=== PATIENT | female | born 1975 | race Caucasian/White ===

== ENCOUNTER 2017-12-12 14:43 | Emergency (ER) | payer MEDICAID, OTHER ==
[~2017-12-12] VITALS: Ht 160 cm; Wt 98.0 kg
[2017-12-12] MEDS ORDERED: ketorolac trometh inj. 60 MG/2 ML VIAL IM ONE (15:55)
[2017-12-12 16:07] LABS: URINE HCG NEGATIVE (NEG)
[2017-12-12 16:08] LABS: CLARITY,URINE CLEAR (Clear); COLOR,URINE YELLOW (Yellow); GLUCOSE, URINE NEGATIVE (Neg); KETONES,URINE NEGATIVE (Neg); LEUKOCYTE ESTERASE ,URINE TRACE (Neg); NITRITES, URINE NEGATIVE (Neg); OCCULT BLOOD,URINE NEGATIVE (Neg); PH,URINE 5.5 (4.8-8.0); PROTEIN,URINE NEGATIVE (Neg); UROBILINOGEN,URINE 0.2 E.U/dL (0.2-1.0)
[2017-12-12 16:09] LABS: UA COLLECTION TYPE CLN CATCH MIDSTREAM
[2017-12-12 16:12] LABS: BASOPHILS # (AUTO) 0.1 X10'3 (0-0.2); BASOPHILS % (AUTO) 0.6 % (0-1); EOSINOPHILS # (AUTO) 0.2 X10'3 (0-0.9); EOSINOPHILS % (AUTO) 1.9 % (0-6); HEMATOCRIT 45.5 % (35.0-45.0); HEMOGLOBIN 15.6 g/dl (12.0-16.0); LYMPHOCYTES # (AUTO) 3.4 X10'3 (1.1-4.8); LYMPHOCYTES % (AUTO) 31.2 % (21-51); MEAN CORPUSCULAR HEMOGLOBIN 30.6 PG (27.0-31.0); MEAN CORPUSCULAR HGB CONC 34.4 % (33.0-36.5); MEAN CORPUSCULAR VOLUME 89.1 FL (78-98); MEAN PLATELET VOLUME 8.5 FL (7.4-10.4); MONOCYTES # (AUTO) 0.4 X10'3 (0-0.9); MONOCYTES % (AUTO) 3.6 % (2-12); NEUTROPHILS # (AUTO) 6.9 X10'3 (1.8-7.7); NEUTROPHILS % (AUTO) 62.7 % (42-75); PLATELET COUNT 378 X10'3 (140-440); RED BLOOD COUNT 5.11 X10'6 (4.20-5.60); RED CELL DISTRIBUTION WIDTH 12.4 % (11.5-14.5)
[2017-12-12 16:16] LABS: WBC,URINE 0-4 /HPF (0-4)
[2017-12-12 16:17] LABS: BACTERIA,URINE 3+ /HPF (Neg); RBC,URINE NONE SEEN /HPF (0-2); SQUAMOUS EPITHELIAL CELL,UR FEW /LPF (FEW)
[2017-12-12 16:23] LABS: ALANINE AMINOTRANSFERASE 26 U/L (12-78); ALBUMIN 3.6 G/DL (3.4-5.0); ALKALINE PHOSPHATASE 127 IU/L (46-116); ANION GAP 8 (8-16); ASPARTATE AMINO TRANSFERASE 14 U/L (10-37); BILIRUBIN,TOTAL 0.2 MG/DL (0.1-1.0); BLOOD UREA NITROGEN 18 MG/DL (7-18); CALCIUM 8.8 MG/DL (8.5-10.1); CHLORIDE 105 MMOL/L (99-107); GLUCOSE 110 MG/DL (70-104); LIPASE 122 U/L (73-393); POTASSIUM 4.2 MMOL/L (3.5-5.1); SODIUM 140 MMOL/L (135-145); TOTAL CARBON DIOXIDE 26.7 MMOL/L (24-32); TOTAL PROTEIN 7.2 G/DL (6.4-8.2); eGFR 61 ML/MIN
[2017-12-12 17:00] VITALS: BP 146/89
== END 2017-12-12 17:02 | disposition home or self-care (01) ==
LOC: ER 14:44
DX: G89.29 Other chronic pain (principal); M79.671 Pain in right foot; R10.811 Right upper quadrant abdominal tenderness; R10.13 Epigastric pain; Z90.710 Acquired absence of both cervix and uterus; Z88.2 Allergy status to sulfonamides
CPT/HCPCS: 36415; 76700; 80053; 81001; 81025; 83690; 85025; 87077; 87088; 87186; 96372; 99285; J1885

== ENCOUNTER 2018-06-19 03:32 | Emergency (ER) | payer MEDICAID, OTHER ==
[~2018-06-19] VITALS: Ht 160 cm; Wt 100.0 kg
[2018-06-19 03:39] VITALS: BP 177/91
[2018-06-19] MEDS ORDERED: HYDR-565 PO (04:09)
[2018-06-19] MEDS ORDERED: AMOX500C2 PO (04:09)
[2018-06-19] MEDS ORDERED: ibuprofen tablet 400 MG TABLET PO ONE (04:10)
[2018-06-19] MEDS ORDERED: amoxicillin 250mg capsule PO ONE (04:10)
[2018-06-19] MEDS ORDERED: HYDROcodone/acetaminophen 10/325mg tab PO ONE (04:10)
[2018-06-19] MEDS ORDERED: IBUP-1986 PO (04:11)
== END 2018-06-19 04:29 | disposition home or self-care (01) ==
LOC: ER 03:32
DX: K04.7 Periapical abscess without sinus (principal); Z90.710 Acquired absence of both cervix and uterus; Z90.89 Acquired absence of other organs; Z88.2 Allergy status to sulfonamides; Z79.899 Other long term (current) drug therapy
CPT/HCPCS: 99284

== ENCOUNTER 2018-06-22 17:49 | Emergency (ER) | payer OTHER ==
[~2018-06-22] VITALS: Ht 160 cm; Wt 97.0 kg
[~2018-06-22 17:49] MED LIST: AMOX500C2 PO; HYDR-565 PO; IBUP-1986 PO
[2018-06-22] MEDS ORDERED: proparacaine 0.5% ophthalmic drops 15ml EACHEYE ONE (18:55)
[2018-06-22] MEDS ORDERED: proCHLORperazine 10 MG/2 ml inj IV ONE (18:55)
[2018-06-22] MEDS ORDERED: normal saline 1000ML IV soln IVB ONE (18:55)
[2018-06-22] MEDS ORDERED: diphenhydrAMINE 50 mg/ml inj IV ONE (18:55)
[2018-06-22] MEDS ORDERED: ketorolac tromethamine 15mg/ml inj. IV ONE (20:50)
[2018-06-22] MEDS ORDERED: orphenadrine citrate 60mg/2ml inj. IM ONE (20:50)
[2018-06-22] MEDS ORDERED: ondansetron/PF 4mg/2ml inj IV ONE (20:50)
[2018-06-22] MEDS ORDERED: meclizine 12.5mg tablet PO ONE (20:50)
[2018-06-22 21:00] VITALS: BP 140/71
== END 2018-06-22 21:42 | disposition home or self-care (01) ==
LOC: ER 17:50
DX: H53.8 Other visual disturbances (principal); R51 Headache; H57.02 Anisocoria; F17.210 Nicotine dependence, cigarettes, uncomplicated; M77.9 Enthesopathy, unspecified; Z90.710 Acquired absence of both cervix and uterus; Z90.89 Acquired absence of other organs; Z88.2 Allergy status to sulfonamides; Z79.2 Long term (current) use of antibiotics; Z79.1 Long term (current) use of non-steroidal anti-inflammatories (NSAID)
CPT/HCPCS: 96372; 96374; 96375; 99284; J0780; J1200; J1885; J2360; J2405; J7030; J8597

== ENCOUNTER 2022-06-15 05:31 | Emergency (ER) | payer SELFPAY ==
[~2022-06-15] VITALS: Ht 160 cm; Wt 72.7 kg
[~2022-06-15 05:31] MED LIST changes: -AMOX500C2 PO; -HYDR-565 PO
[2022-06-15 05:55] VITALS: BP 166/94
== END 2022-06-15 19:38 | disposition left against medical advice (07) ==
LOC: ER 05:33
DX: R07.89 Other chest pain (principal); R06.02 Shortness of breath; Z53.21 Procedure and treatment not carried out due to patient leaving prior to being seen by health care provider
CPT/HCPCS: 93005

== ENCOUNTER 2022-10-01 10:46 | Emergency (ER) | payer BC ==
[~2022-10-01] VITALS: Ht 160 cm; Wt 77.3 kg
[2022-10-01 11:31] LABS: ALANINE AMINOTRANSFERASE 39 U/L (12-78); ALBUMIN 3.9 G/DL (3.4-5.0); ALBUMIN/GLOBULIN RATIO 1.1 (1.1-1.5); ALKALINE PHOSPHATASE 105 IU/L (46-116); ANION GAP 8 (8-16); ASPARTATE AMINO TRANSFERASE 32 U/L (10-37); BILIRUBIN,TOTAL 0.3 MG/DL (0.1-1.0); BLOOD UREA NITROGEN 24 MG/DL (7-18); BUN/CREATININE RATIO 21.8 (6.6-38.0); CALCIUM 9.3 MG/DL (8.5-10.1); CHLORIDE 102 MMOL/L (99-107); GLUCOSE 105 MG/DL (70-104); POTASSIUM 4.2 MMOL/L (3.5-5.1); SODIUM 139 MMOL/L (135-145); TOTAL CARBON DIOXIDE 28.8 MMOL/L (24-32); TOTAL PROTEIN 7.5 G/DL (6.4-8.2); eGFR 53 ML/MIN
[2022-10-01 11:35] LABS: BASOPHILS # (AUTO) 0.1 X10'3 (0-0.2); BASOPHILS % (AUTO) 0.6 % (0-1); EOSINOPHILS # (AUTO) 0.4 X10'3 (0-0.9); EOSINOPHILS % (AUTO) 3.5 % (0-6); HEMATOCRIT 43.9 % (35.0-45.0); HEMOGLOBIN 14.5 g/dl (12.0-16.0); LYMPHOCYTES # (AUTO) 5.1 X10'3 (1.1-4.8); LYMPHOCYTES % (AUTO) 44.8 % (21-51); MEAN CORPUSCULAR HEMOGLOBIN 30.9 PG (27.0-31.0); MEAN CORPUSCULAR HGB CONC 33.1 g/dL (33.0-36.5); MEAN CORPUSCULAR VOLUME 93.3 FL (78-98); MEAN PLATELET VOLUME 8.8 FL (7.4-10.4); MONOCYTES # (AUTO) 0.8 X10'3 (0-0.9); MONOCYTES % (AUTO) 6.7 % (2-12); NEUTROPHILS # (AUTO) 5.1 X10'3 (1.8-7.7); NEUTROPHILS % (AUTO) 44.4 % (42-75); PLATELET COUNT 256 X10'3 (140-440); RED BLOOD COUNT 4.71 X10'6 (4.20-5.60); RED CELL DISTRIBUTION WIDTH 13.8 % (11.5-14.5); WHITE BLOOD COUNT 11.4 X10'3 (4.5-11.0)
[2022-10-01 11:39] LABS: LIPASE 127 U/L (73-393)
[2022-10-01 13:44] VITALS: BP 129/65
--- NOTE | 2022-10-01 13:46 | NUR ---
Relieving RN for lunch break. Pt resting quietly. RESP even and unlabored, Pt ambulates to restroom wihtout assist.
== END 2022-10-01 14:35 | disposition home or self-care (01) ==
LOC: ER 10:47
DX: R07.89 Other chest pain (principal); F12.90 Cannabis use, unspecified, uncomplicated; F15.20 Other stimulant dependence, uncomplicated; Z88.2 Allergy status to sulfonamides; Z90.710 Acquired absence of both cervix and uterus; Z98.890 Other specified postprocedural states; Z87.891 Personal history of nicotine dependence
CPT/HCPCS: 36415; 71045; 80053; 83690; 83880; 84484; 85025; 93005; 99285